=== PATIENT | female | born 1990 | race Caucasian/White ===

== ENCOUNTER 2023-07-15 07:28 | Day surgery (SDC) | payer MEDICAID ==
[~2023-07-15] VITALS: Ht 157.5 cm; Wt 56.7 kg
[2023-07-15 08:22] LABS: HCG,QUAL RESULT NEGATIVE (NEGATIVE)
[2023-07-15 08:50] VITALS: O2SAT 99
[2023-07-15] MEDS ORDERED: ACETAMINOPHEN I.V. 1000 MG 100 ML IV ONE (09:53)
[2023-07-15] MEDS ORDERED: LR 1,000 ML IV SCH (10:45)
[2023-07-15] MEDS ORDERED: LABETALOL 100 MG/ 20ML VIAL IVP PRN (11:00)
[2023-07-15] MEDS ORDERED: hydrALAZINE HCL 20 MG/ML VIAL IVP PRN (11:00)
[2023-07-15] MEDS ORDERED: MEPERIDINE HCL/PF 25 MG/ML DISP.SYRIN IVP PRN (11:00)
[2023-07-15] MEDS ORDERED: HYDROmorphone 1 MG/ML INJ. CARTRIDGE IVP PRN ×2 (11:00)
[2023-07-15] MEDS ORDERED: MIDAZOLAM HCL 2 MG/2 ML VIAL (VERSED) IVP PRN (11:00)
[2023-07-15] MEDS ORDERED: METOCLOPRAMIDE HCL 10 MG/2 ML VIAL IVP PRN (11:00)
[2023-07-15] MEDS ORDERED: ROCURONIUM BROMIDE 10 MG/ML (ZEMURON) ONE (12:20)
[2023-07-15] MEDS ORDERED: PROPOFOL 200MG/ 20ML VIAL (DIPRIVAN) IV ONE (12:20)
[2023-07-15] MEDS ORDERED: LIDOCAINE 2%, 20 ML MDV ONE (12:20)
[2023-07-15] MEDS ORDERED: MIDAZOLAM HCL 5 MG/ML VIAL (VERSED) IV ONE (12:20)
[2023-07-15] MEDS ORDERED: OXYMETAZOLINE HCL 0.05% NASAL SPRAY NS ONE (12:20)
[2023-07-15] MEDS ORDERED: DESFLURANE 15 MIN GAS INH ONE (12:20)
[2023-07-15] MEDS ORDERED: ONDANSETRON HCL 4 MG/2 ML VIAL ONE (12:20)
[2023-07-15] MEDS ORDERED: DEXAMETHASONE SOD PHOSPHATE 4 MG/ML VIAL ONE (12:20)
[2023-07-15] MEDS ORDERED: EPINEPHrine HCL 1 MG/ML VIAL ONE (12:20)
[2023-07-15] MEDS ORDERED: fentaNYL CITRATE/PF 100 MCG/2 ML AMP ONE (12:20)
[2023-07-15] MEDS ORDERED: WATER FOR IRRIGATION,STERILE 1,000 ML IRRIG.SOLN IR ONE (12:20)
[2023-07-15] MEDS ORDERED: [UNRECOGNIZED DRUG - OTHER] ONE (12:20)
[2023-07-15] MEDS ORDERED: NS IRRIG SOLN 1000 ML IR ONE (12:20)
[2023-07-15] MEDS ORDERED: LR 1,000 ML IV.SOLN IV ONE (12:20)
[2023-07-15] MEDS ORDERED: MUPIROCIN 2% TOPICAL OINTMENT 22 GM ONE (12:20)
[2023-07-15] MEDS ORDERED: METOCLOPRAMIDE HCL 10 MG/2 ML VIAL ONE (12:51)
[2023-07-15 13:44] VITALS: BP_SYST 109; PULSE 80; RESP 19; TEMP 98
== END 2023-07-15 12:25 | disposition home or self-care (01) ==
LOC: SDS 07:28 → STU 07:41 → SDS 12:25
PROVIDERS: ATTEND Otolaryngology
DX: D38.5 Neoplasm of uncertain behavior of other respiratory organs (principal); J34.2 Deviated nasal septum; J32.9 Chronic sinusitis, unspecified; J10.89 Influenza due to other identified influenza virus with other manifestations; J30.1 Allergic rhinitis due to pollen; Z79.899 Other long term (current) drug therapy
CPT/HCPCS: 31297; 84703; 88304; 88311; 30140; 30520; J1100; J0171; J2001; J2765; J2250; J2405; J2704; J3010; J7120; J0131